=== PATIENT | female | born 2000 | race Caucasian/White ===

== ENCOUNTER 2019-05-08 13:44 | Emergency (ER) | payer OTHER ==
[2019-05-08 13:50] VITALS: BP 108/77
[2019-05-08] MEDS ORDERED: ACETAMINOPHEN 325 MG TABLET PO ONE (13:58)
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
== END 2019-05-08 15:09 | disposition home or self-care (01) ==
LOC: ER 13:44
DX: S01.531A Puncture wound without foreign body of lip, initial encounter (principal); S02.5XXA Fracture of tooth (traumatic), initial encounter for closed fracture; R51 Headache; M79.604 Pain in right leg; V89.2XXA Person injured in unspecified motor-vehicle accident, traffic, initial encounter
CPT/HCPCS: 70450; 70486